=== PATIENT | female | born 1965 ===

== ENCOUNTER 2022-03-31 20:31 | Observation (INO) ==
[2022-03-31 21:42] LABS: ABS Basophils 0.1 10^3/ul (0-0.2); ABS Eosinophils 0.2 10^3/ul (0-0.6); ABS Lymphocytes 2.2 10^3/ul (1.0-4.8); ABS Monocytes 0.7 10^3/ul (0-0.8); ABS Neutrophils 6.8 10^3/ul (1.5-7.7); Eosinophil % 2.3 %; Hematocrit 40 % (35-47); Hemoglobin 12.9 g/dL (12.0-16.0); Lymphocyte % 22.3 %; Mean Corpuscular HGB Conc 33 g/dL (31-36); Mean Corpuscular Hemoglobin 30 pg (27-31); Mean Corpuscular Volume 90 fL (80-97); Mean Platelet Volume 8.5 fL (7.4-10.4); Platelet Count 218 10^3/uL (150-450); Red Blood Count 4.37 10^6 /uL (3.70-4.87); Red Cell Distribution Width 13 % (10-15)
[2022-03-31 22:25] LABS: Albumin 4.4 g/dL (3.2-5.2); Albumin/Globulin Ratio 1.8 (1-3); C Reactive Protein 3.03 mg/L (<8.01); Calcium 9.8 mg/dL (8.6-10.3); Creatinine, Serum 1.29 mg/dL (0.51-0.95); Globulin 2.5 g/dL (2-4); Magnesium 1.6 mg/dL (1.9-2.7); Phosphorus 3.9 mg/dL (2.5-5.0); Potassium 3.9 mmol/L (3.5-5.0); Total Bilirubin 0.5 mg/dL (0.2-1.0); Total Protein 6.9 g/dL (6.4-8.9); eGFR CKD-EPI 49.3 (>60)
[2022-03-31] MEDS ORDERED: Metoclopramide 5 MG/ML VIAL (10 mg) IV SLOW PU ONE (22:29)
[2022-03-31] MEDS ORDERED: NS 0.9% 1000 ml BAG 1,000 ML IV ONE (22:29)
[2022-03-31] MEDS ORDERED: Magnesium Sulfate 2 gm BAG 2 GM/50 ML BAG IVPB ONE (22:30)
[2022-03-31 22:33] LABS: HCG Pregnancy 3.98 mIU/mL
[2022-03-31 23:06] LABS: High Sensitivity Troponin 1 Hr 190 pg/mL (<15)
[2022-03-31] MEDS ORDERED: Nitro 2% OINT (Nitroglycerin) 1 INCH/PAK TOPICAL ONE (23:16)
[2022-03-31] MEDS ORDERED: Metoprolol Tartrate 5 mg VIAL 5 ml VIAL (1 mg/ml) IV ONE (23:18)
[2022-03-31] MEDS ORDERED: Enoxaparin 80 MG/0.8 ML SYR SUBCUT ONE (23:18)
[2022-04-01 00:58] LABS: Urine Appearance Cloudy; Urine Bilirubin Negative (Negative); Urine Blood Negative (Negative); Urine Color Amber; Urine Glucose Negative (Negative); Urine Ketones Negative (Negative); Urine Nitrite Negative (Negative); Urine Protein 2+(100 mg/dL) (Negative); Urine Specific Gravity 1.027 (1.002-1.030); Urine Urobilinogen Positive (Negative)
[2022-04-01 01:05] LABS: Urine Bacteria 1+ (Absent); Urine Granular Casts Present (Absent); Urine Red Blood Cell 3+(>10/hpf) (Absent); Urine Squamous Epithelial Cell Present (Absent); Urine White Blood Cell 2+(11-20/hpf) (Absent)
[2022-04-01 01:19] LABS: HDL Cholesterol 80.7 mg/dL
[2022-04-01] MEDS ORDERED: Potassium Chlor 10 meq TAB PO ONE (07:21)
[2022-04-01] MEDS ORDERED: Sulfur Hexaflouride MICROSPHR 25 MG VIAL ONE (08:40)
[2022-04-01] MEDS ORDERED: Heparin DRIP 25,000 UNITS BAG 25,000 UNITS/500 ML BAG IV SCH ×2 (08:45→17:45)
[2022-04-01] MEDS ORDERED: NS 0.9% 1000 ml BAG 1,000 ML IV SCH ×2 (09:00→16:15)
[2022-04-01] MEDS ORDERED: Enoxaparin 100 MG/ML SYR SUBCUT SCH (09:00)
[2022-04-01 09:33] LABS: Calcium 8.7 mg/dL (8.6-10.3); Potassium 3.7 mmol/L (3.5-5.0)
[2022-04-01] MEDS ORDERED: Heparin 5000 UNITS/ML 1 mL VIAL IV SCH (10:00)
[2022-04-01] MEDS: DULoxetine DR 30 mg CAP PO SCH ×2 (10:03→22:38)
[2022-04-01 10:08] LABS: Activated Partial Thrombo Time 30.5 seconds (26.0-38.0)
[2022-04-01 11:04] LABS: Hematocrit 38 % (35-47); Hemoglobin 12.9 g/dL (12.0-16.0)
[2022-04-01 11:32] LABS: High Sensitivity Troponin 1 Hr 269 pg/mL (<15)
[2022-04-01 13:17] LABS: Creatinine, Serum 1.12 mg/dL (0.51-0.95); eGFR CKD-EPI 58.4 (>60)
[2022-04-01] MEDS ORDERED: Heparin 1,000 UNIT/ML 10 ml (10,000 UNITS) CATHLAB/DIALYSIS ONE (14:32)
[2022-04-01] MEDS ORDERED: fentaNYL 100 mcg/2 ml 50 MCG/ML VIAL ONE (14:32)
[2022-04-01] MEDS ORDERED: Midazolam 5 mg/5 ml VIAL 1 mg/ml 5 ml VIAL (5 mg) ONE (14:32)
[2022-04-01] MEDS ORDERED: VERAPAMIL 2.5 MG/ML 2 ML VIAL ** 5 mg/2 ml ONE (14:32)
[2022-04-01] MEDS ORDERED: nitroGLYCERIN DRIP 25,000 MCG/250 ML BTL ONE (14:33)
[2022-04-01] MEDS ORDERED: Lidocaine 1% MPF 5 ML VIAL ONE (14:33)
[2022-04-01] MEDS ORDERED: Heparin 2 UNITS/ML 1000 mls 2,000 ML IV ONE (14:33)
[2022-04-01] MEDS ORDERED: Iohexol 350 (CONTRAST) 100 ML PAK IV ONE (14:33)
[2022-04-02 07:05] LABS: ABS Basophils 0.1 10^3/ul (0-0.2); ABS Eosinophils 0.3 10^3/ul (0-0.6); ABS Lymphocytes 2.5 10^3/ul (1.0-4.8); ABS Monocytes 0.4 10^3/ul (0-0.8); ABS Neutrophils 2.4 10^3/ul (1.5-7.7); Hematocrit 38 % (35-47); Hemoglobin 12.6 g/dL (12.0-16.0); Lymphocyte % 43.1 %; Mean Corpuscular HGB Conc 33 g/dL (31-36); Mean Corpuscular Hemoglobin 30 pg (27-31); Mean Corpuscular Volume 91 fL (80-97); Mean Platelet Volume 8.9 fL (7.4-10.4); Platelet Count 178 10^3/uL (150-450); Red Blood Count 4.21 10^6 /uL (3.70-4.87); Red Cell Distribution Width 13 % (10-15); White Blood Count 5.7 10^3/uL (3.5-10.8)
[2022-04-02 07:11] LABS: Calcium 8.9 mg/dL (8.6-10.3); Potassium 4.1 mmol/L (3.5-5.0)
[2022-04-02 07:16] LABS: Creatinine, Serum 0.96 mg/dL (0.51-0.95); eGFR CKD-EPI 70.3 (>60)
[2022-04-02] MEDS: DULoxetine DR 30 mg CAP PO SCH (08:56)
[2022-04-02] MEDS ORDERED: CMCS: Omeprazole 20 mg CAP (NF) PO SCH (09:00)
[2022-04-02 17:51] VITALS: BP 118/60
[2022-04-07 15:51] LABS: DHEA 2.1 ng/mL (<6.0)
== END 2022-04-02 15:13 | disposition home or self-care (01) ==
LOC: EDHOLD 20:31 → ED 20:31 → SUATTDRO 23:29 → EDHOLD 04-01 14:02 → MEDTELE 04-01 18:38
PROVIDERS: ADMIT Internal Medicine; ATTEND Internal Medicine